=== PATIENT | female | born 1990 | race Caucasian/White ===

== ENCOUNTER 2024-05-26 07:41 | Outpatient (CLI) | payer BC, SELFPAY ==
--- NOTE | ~2024-05-26 | US_ITS ---
EXAMINATION TYPE: US breast RT limited COMPARISON: NONE REASON FOR STUDY: Breast lump, prior abscess TECHNIQUE: Targeted sonographic evaluation of the right breast was performed. INTERPRETATION: At the area scanned, there is no discrete mass lesion seen. No fluid collection evident. No cytology seen in the region scanned of the 2:00 region right breast. IMPRESSION: No significant abnormality seen in the region scanned. No abscess or solid lesion seen. BI-RADS CATEGORY: BI-RADS 1: Normal Reviewed, dictated and finalized at location . [employer] IMPRESSION: No significant abnormality seen in the region scanned. No abscess or solid lesi on seen. BI-RADS CATEGORY: BI-RADS 1: Normal
== END 2024-05-26 07:42 | disposition home or self-care (01) ==
LOC: MICIMG 07:42
PROVIDERS: PCP Obstetrics & Gynecology; Visit Provider Obstetrics & Gynecology
DX: N63.15 Unspecified lump in the right breast, overlapping quadrants (principal)
CPT/HCPCS: 76642